=== PATIENT | female | born 1980 | race Caucasian/White ===

== ENCOUNTER 2019-12-24 14:19 | Outpatient (CLI) | payer OTHER, SELFPAY ==
--- NOTE | ~2019-12-24 | MM_ITS ---
EXAMINATION: MM screening rojas BI w edin HISTORY: Screening mammogram TECHNIQUE: Craniocaudal and mediolateral oblique 3-D tomosynthesis images were obtained and synthetic 2-D images were generated. CAD analysis was submitted and interpreted. COMPARISON: Comparison to multiple prior studies sequentially, with oldest reviewed study dated 08/2016. BREAST PARENCHYMAL COMPOSITION: There are scattered areas of fibroglandular density. FINDINGS: There is no evidence of suspicious mass, calcification, or architectural distortion to sugg est malignancy in either breast. There has been no suspicious interval change. IMPRESSION: 1. No mammographic evidence of malignancy. 2. Recommend routine screening mammography in one year. BI-RADS Category 1: Negative Reviewed, dictated and finalized at location A.
== END 2019-12-24 14:20 | disposition home or self-care (01) ==
LOC: ANHIMG 14:22
PROVIDERS: PCP Physician Assistant; Visit Provider Nurse Practitioner
DX: Z12.31 Encounter for screening mammogram for malignant neoplasm of breast (principal)
CPT/HCPCS: 77063; 77067

== ENCOUNTER → 2021-02-23 13:09 | Outpatient (CLI) | payer OTHER, SELFPAY ==
--- NOTE | ~2021-02-23 | MM_ITS ---
EXAMINATION: MM screening rojas BI w edin HISTORY: Screening TECHNIQUE: Craniocaudal and mediolateral oblique 3-D tomosynthesis images were obtained and synthetic 2-D images were generated. CAD analysis was submitted and interpreted. COMPARISON: Comparison to multiple prior studies sequentially, with oldest reviewed study dated 08/2016. BREAST PARENCHYMAL COMPOSITION: There are scattered areas of fibroglandular density. FINDINGS: There is no evidence of suspicious mass, calcification, or architectural distortion to sugg est malignancy in either breast. There has been no suspicious interval change. IMPRESSION: 1. No mammographic evidence of malignancy. 2. Recommend routine screening mammography in one year. BI-RADS Category 1: Negative Reviewed, dictated and finalized at location A.
== END ==
PROVIDERS: Visit Provider Nurse Practitioner
DX: Z12.31 Encounter for screening mammogram for malignant neoplasm of breast (principal)
CPT/HCPCS: 77063; 77067

== ENCOUNTER → 2021-10-15 13:54 | Outpatient (CLI) | payer OTHER, SELFPAY ==
--- NOTE | ~2021-10-15 | US_ITS ---
EXAMINATION: US transvaginal EXAM DATE: 10/15/2021 14:27 INDICATION: Abnormal uterine bleeding. History of tubal ligation, D and C for IUD removal TECHNIQUE: Pelvic transvaginal sonogram was performed. There are multiple grayscale and Doppler imag es available for interpretation. There is no prior study for comparison. FINDINGS: Uterus measures 9.5 x 5.1 x 6.1 cm, , with several fibroids identified, largest measuring 3.8 and 1.8 cm. endometrial stripe measures 8 mm, within normal limits, with several small echogenic foci along the endometrial/myometrial junction probably calcifications which could be dystrophic from prior procedure given history provided. There is no free pelvic fluid. Right adnexa: The ovary measures 3.3 x 1.6 x 2.3 cm and has the dominant follicle measuring 2.4 cm. O varian vascular flow confirmed. Left adnexa: The ovary measures 2.6 x 1.6 x 2.3 cm and is morphologically normal. Ovarian vascular fl ow confirmed. IMPRESSION: 1. Several fibroids. 2. Several small endometrial/myometrial junction echogenic foci, could be chronic calcifications, sc arring given the history provided. Endometrium normal in thickness. Reviewed, dictated and finalized at location B. IMPRESSION: 1. Several fibroids. 2. Several small endometrial/myometrial junction echogenic foci, could be lunchroom mother whitney calcifications, scarring given the history provided. Endometrium normal in thickness.
== END ==
PROVIDERS: Visit Provider Nurse Practitioner
DX: N93.8 Other specified abnormal uterine and vaginal bleeding (principal); D25.9 Leiomyoma of uterus, unspecified
CPT/HCPCS: 76830

== ENCOUNTER 2021-12-17 08:26 | Outpatient (CLI) | payer OTHER, SELFPAY ==
[2021-12-17 08:55] LABS: Anion Gap 4 mmol/L (8-16); Blood Urea Nitrogen 15 mg/dL (7-17); Calcium 8.9 mg/dL (8.4-10.2); Carbon Dioxide 27 mmol/L (22-30); Chloride 108 mmol/L (98-107); Estimated Glomerular Filt Rate > 60; Glucose 93 mg/dL (65-110); Potassium 4.3 mmol/L (3.4-5.0); Sodium 139 mmol/L (137-145)
== END 2021-12-17 08:27 | disposition home or self-care (01) ==
LOC: ANHSURGERY 08:30
PROVIDERS: Anesthesiology; PCP Physician Assistant; Visit Provider Obstetrics & Gynecology Gynecology
DX: Z01.818 Encounter for other preprocedural examination (principal)
CPT/HCPCS: 36415; 80048

== ENCOUNTER 2021-12-21 02:12 | Day surgery (SDC) | payer OTHER, SELFPAY ==
[2021-12-15 13:22] VITALS: BMI 33.3
--- NOTE | 2021-12-15 13:50 | PC.NURSE ---
Report to the Outpatient Waiting Room, entrance under the green pavilion located off [facility], at time _0830_ on date _12/21/21__. OR Time: 1030__. - You and your visitor will be asked a series of questions to screen for COVID 19 for your protection. - Only one visitor is allowed at this time. - The patient visitor is requested to leave or wait in car when not with patient. - A mask is required within the hospital. Patients may have clear liquids (water, carbonated beverages, clear teas, apple juice) until 3 hours prior to surgery with a maximum of 20 ounces. - No food from midnight until time of surgery - Take the following medications with a SIP of water the morning of surgery: __VENLEFAXINE Medications to discontinue per physician N/A Date to take last dose Please no make-up, nail guinean, hairspray, perfume, deodorant, or body powder the day of surgery. No jewelry (including any body piercings) or valuables the day of surgery, leave them at home. Please take a shower or bath the night before, or the morning of, surgery with an antibacterial soap. Wear comfortable, loose fitting clothing. - Jewelry must be removed prior to entering the operating room. Rings and piercings that are not removed may be cut off. - The hospital will not accept responsibility for valuables. - Please leave all valuables, including medications, at home the day of surgery. If you are going home after surgery, a licensed milk delivery driver must drive you home. - NO public transportation without another adult. - We recommend that an adult stay with you for 24 hours following discharge. - We also recommend that you do not drive, make important decision, drink alcoholic beverages, or take any drugs that were not prescribed by your health care provider for at least 24 hours after your discharge time. Follow any additional instructions given to you from your surgeon. If you or anyone in your household have experienced Covid symptoms in the past week, please notify your surgeon or the nurse liaison at the phone number below for possible testing. Telephone instructions given to __MALINDA and asked if any additional questions and then verbalized understanding. Patient advised to call surgeon office or pre surgery nurse liaison [phone] if any additional questions.
--- NOTE | 2021-12-21 08:09 | P.HP_ITS ---
History of Present Illness History of Present Illness Consent: Risks, benefits, and alternatives have been discussed and questions answered. Patient agrees to proceed with procedure. Chief complaint: menorrhagia, fibroids Narrative: Anastacia Story is a 41 year old female with a change in her cycle March of 2021. She reports having 2 cycles per month approximately every 19 to 23 days. Starting in September changed to also being heavy and she is changing a super tampon every 1-1/2 hours with clots. Pelvic ultrasound revealed a normal size uterus at no 0.5x5.1x6.1 however there are several small fibroids noted. The ultrasound does not give location. It was recommended to proceed with D&C hysteroscopy in the operating room to evaluate the endometrium and potentially perform hysteroscopic resection of fibroid if submucosal. Risks of infection, bleeding, perforation, and fluid imbalance were reviewed. Possible pathology was also discussed. Patient voices understanding and agrees to proceed. REPLACED BY [facility] Past Medical History Medical History (Updated 12/21/21 @ 08:15 by Siobhan Travis MD) Status post hysteroscopy Removal IUD Ulnar nerve compression Bilateral surgery left 2017 right 2019 Surgical History Surgical History (Updated 12/21/21 @ 08:14 by Siobhan Travis MD) History of bilateral tubal ligation History of loop electrical excision procedure (LEEP) X2 Status post laparoscopic cholecystectomy Social History Social History Smoking packs per day: 0.5 Smoking cigarettes per day: 10.0 Years smoked: 25 Smoking pack-years: 12.50 Smoking status: Current every day smoker Tobacco type: cigarettes Alcohol intake: never Substance use: never Substance use type: does not use Living arrangements: alone Spiritual care concerns: No Meds Home Medications and Allergies Home Medications Medication Instructions Recorded Confirmed Type ergocalciferol (vitamin D2) 1,250 1 cap PO WEEKLY 12/15/21 12/15/21 History mcg (50,000 unit) capsule metformin 500 mg tablet,extended 500 tablet PO BIDWMEAL 12/15/21 12/15/21 History release 24 hr venlafaxine 75 mg capsule,extended 75 cap PO DAILY 12/15/21 12/15/21 History release 24 hr Allergies Allergy/AdvReac Type Severity Reaction Status Date / Time Penicillins Allergy Unknown Verified 07/22/17 21:20 Exam Const: General: healthy appearing and alert Orientation/consciousness: patient oriented x3 GI: GI Palp: Yes Soft to palpation, No Tenderness to palpation present (GI) and No Palpable mass present : External Female Exam: normal external appearance Speculum Exam - Vagina: normal appearance of the vagina and normal vaginal discharge Speculum Exam - Cervix: normal appearance of the cervix Bimanual exam- vagina & uterus: uterine size normal and consistency normal Bimanual Exam- Adnexa, other: normal adnexae and No adnexal tenderness Neuro: General: patient oriented x3 Assessment and Plan Assessment and plan (1) Menorrhagia: Code(s): N92.0 - Excessive and frequent menstruation with regular cycle Status: Acute Assessment and Plan: Plan is to proceed with D&C hysteroscopy
--- NOTE | 2021-12-21 08:09 | WPDHPUPDATE1 ---
History and Physical Update Update Date/Time: 12/21/21 08:09 History and Physical has been reviewed, including an updated exam of the patient. There are NO changes in the patient's condition. Risks, benefits, and alternatives have been discussed and questions answered. Patient agrees to proceed with procedure.
[2021-12-21] MEDS: ACETAMINOPHEN 500 MG TABLET 1000 MG PO (09:15)
--- NOTE | 2021-12-21 09:37 | WPDANESEPPF ---
Anes - Initial Pre Proc Eval Procedure: Operation Date: 12/21/21 10:30 Proposed Procedures p Hysteroscopy Dilation and Curettage with Myomectomy - Siobhan Travis MD Date/Time: 12/21/21 09:37 Surgeon: Siobhan Travis MD Pre Op Diagnosis: menorrhagia, fibroids Patient Data Age: 41 Gender: F Height: 1.65 m Weight: 91 kg Allergies Allergy/AdvReac Type Severity Reaction Status Date / Time Penicillins Allergy Unknown Verified 07/22/17 21:20 Home Medications Medication Instructions Recorded Confirmed Type ergocalciferol (vitamin D2) 1,250 1 cap PO WEEKLY 12/15/21 12/15/21 History mcg (50,000 unit) capsule metformin 500 mg tablet,extended 500 tablet PO BIDWMEAL 12/15/21 12/15/21 History release 24 hr venlafaxine 75 mg capsule,extended 75 cap PO DAILY 12/15/21 12/15/21 History release 24 hr Patient hx anesthesia problems: none Family hx anesthesia problems: none Results Review: All pre-operative results and documents have been reviewed as part of the pre-operative evaluation. [facility] Past Medical History Medical History Diabetes Surgical History Surgical History History of bilateral tubal ligation History of loop electrical excision procedure (LEEP) X2 Status post laparoscopic cholecystectomy Social History Social History Smoking packs per day: 0.5 Smoking cigarettes per day: 10.0 Years smoked: 25 Smoking pack-years: 12.50 Smoking status: Current every day smoker Tobacco type: cigarettes Alcohol intake: never Substance use: never Substance use type: does not use Living arrangements: alone Spiritual care concerns: No Anes - Eval Final PreProcedure Day of Procedure 12/21/21 09:37 Patient weight: obese Heart: regular rate and rhythm Lungs: decreased breath sounds Airway: Mallampati scale class II Neurological: alert and oriented Last oral intake: >/= 8 hours ASA classification: III Emergent: no Anesthetic plan: proceed Anesthesia type and monitoring: general GIVS and standard monitoring Results Review: All pre-operative results and documents have been reviewed as part of the pre-operative evaluation. Informed Consent: The patient's anesthetic plan and its attendant risks and benefits were discussed with the patient/family/POA. Questions were solicited and answers provided to the satisfaction of the patient/family/POA.
[2021-12-21 09:50] LABS: Glucose Point of Care 104 mg/dl (65-105)
[2021-12-21 09:54] VITALS: BP 123/61; PULSE 79; RESP 16; TEMP 36.3; O2SAT 99
[2021-12-21] MEDS: LACTATED RINGERS 1,000 ML 30 ML IV CONT (09:55)
[2021-12-21] MEDS: LIDOCAINE HCL 1% PF 30 ML VIAL INFILTRATE (10:28)
--- NOTE | 2021-12-21 10:35 | P.OP_ITS ---
Procedure Note - Detailed Date of Procedure 12/21/21 Pre-op Diagnosis menorrhagia, fibroids Post-op Diagnosis Same Procedure Performed D&C hysteroscopy Surgeon Siobhan Travis MD Anesthesia MAC and Local Findings 1/2cm polyp prolapsed at the cervix. Uterus sounds to 7.5cm. There are 2 areas of shaggy endometrium without discrete lesions. Remainder of the endometrium appears grossly normal. Description of Procedure The patient is taken to the operating room and placed under anesthesia in the dorsal lithotomy position. She was prepped and draped in the usual sterile fashion. [place] speculum was placed in the vagina and the cervix grasped on the anterior lip with a tenaculum. The cervix is injected in each quadrant with 1% lidocaine. The polyp at the cervix is grasped with polyp forceps and removed. The uterus is sounded to 7.5cm and the cervix is serially dilated to an 8 Hegar. The diagnostic hysteroscope was placed with the stated findings. The small MyoSure device is opened and placed and the 2 shaggy areas are removed with the MyoSure device. The hysteroscope was removed and the medium sharp curette is used to curette the endometrium until a good uterine cry was noted in all areas. All instruments are then removed. Sponge, needle, and instrument counts are correct per the OR staff. Patient is awakened from the anesthesia and taken to recovery in stable condition. Estimated Blood Loss 5 Drains No Packing No Pathology Yes (Endometrial shavings and curettings with endocervical polyp) Complications No immediate complications Condition Stable Disposition PACU
[2021-12-21 10:38] VITALS: BP 112/58; PULSE 76; RESP 16; O2SAT 97
[2021-12-21 11:05] VITALS: BP 99/56; PULSE 66; RESP 14; O2SAT 97
[2021-12-21 11:35] VITALS: BP 102/67; PULSE 62; RESP 16
== END 2021-12-21 11:35 | disposition home or self-care (01) ==
PROVIDERS: PCP Physician Assistant; Visit Provider Obstetrics & Gynecology Gynecology
PROC: 0U5B8ZZ Destruction of Endometrium, Via Natural or Artificial Opening Endoscopic (ICD-10-PCS; CPT 58563; principal; 2021-12-21 10:30)
DX: N92.0 Excessive and frequent menstruation with regular cycle (principal); N84.1 Polyp of cervix uteri; E11.9 Type 2 diabetes mellitus without complications; Z79.84 Long term (current) use of oral hypoglycemic drugs; F17.210 Nicotine dependence, cigarettes, uncomplicated; E66.9 Obesity, unspecified; Z68.33 Body mass index [BMI] 33.0-33.9, adult
CPT/HCPCS: 58558; 36415; 80048; 82948; 88305; A9270; J1885; J2250; J2704; J3010; J7120

== ENCOUNTER 2022-08-06 07:14 | Outpatient (CLI) | payer OTHER, SELFPAY ==
--- NOTE | ~2022-08-06 | MM_ITS ---
EXAMINATION: MM screening rojas BI w edin HISTORY: Screening mammogram TECHNIQUE: Craniocaudal and mediolateral oblique 3-D tomosynthesis images were obtained and synthetic 2-D images were generated. CAD analysis was submitted and interpreted. COMPARISON: 02/23/2021, 12/24/2019, bilateral screening mammogram examinations BREAST PARENCHYMAL COMPOSITION: There are scattered areas of fibroglandular density. FINDINGS: There is no evidence of suspicious mass, calcification, or architectural distortion to sugg est malignancy in either breast. There has been no suspicious interval change. IMPRESSION: 1. No mammographic evidence of malignancy. 2. Recommend routine screening mammography in one year. BI-RADS Category 1: Negative Reviewed, dictated and finalized at location B. INSPECTOR
== END 2022-08-06 07:15 | disposition home or self-care (01) ==
LOC: ANHIMG 07:17
PROVIDERS: PCP Physician Assistant; Visit Provider Nurse Practitioner
DX: Z12.31 Encounter for screening mammogram for malignant neoplasm of breast (principal)
CPT/HCPCS: 77063; 77067

== ENCOUNTER 2022-11-30 14:21 | Outpatient (CLI) | payer OTHER, SELFPAY ==
--- NOTE | ~2022-11-30 | US_ITS ---
EXAMINATION: US axilla BI INDICATION: Bilateral axillary pain TECHNIQUE: Bilateral axillary ultrasound is performed. COMPARISON: 11/22/2017 FINDINGS: No suspicious cystic or solid mass is identified. There is a normal-appearing left axillary lymph node in the area of the patient's left axillary pain. IMPRESSION: 1. No suspicious sonographic correlate is identified for the patient's reported axillary pain. Furthe r evaluation at this time should be based on clinical assessment. Continued follow-up physical examin ation is recommended. BI-RADS Category 1: Negative Reviewed, dictated and finalized at location A. IMPRESSION: 1. No suspicious sonographic correlate is identified for the patient's reported axillary pain. Further evaluation at this time should be based on clinical ass essment. Continued follow-up physical examination is recommended. BI-RADS Category 1: Negative
--- NOTE | ~2022-11-30 | US_ITS ---
EXAMINATION: US soft tissue LE LT DATE: 11/30/2022 14:43 INDICATION: Chronic palpable lump to the left mid to upper thigh. TECHNIQUE: Multiple grayscale and Doppler ultrasound images of the region of concern at the left mid to upper thigh were obtained. COMPARISON: None FINDINGS: 4.8 x 1.5 x 3.3 cm ovoid mass in the subcutaneous tissues at the region of concern which is isoechoic and with identical echotexture and internal septated architecture as the surrounding subcutaneous fa t most consistent with a lipoma. No abnormal increased vascular flow on color Doppler. No other abnor mal masses or fluid collections identified. IMPRESSION: 1. 4.8 x 1.5 x 3.3 cm subcutaneous mass at the region of concern with appearance most consistent with and statistically most likely to represent a lipoma. Reviewed, dictated and finalized at location A. IMPRESSION: 1. 4.8 x 1.5 x 3.3 cm subcutaneous mass at the region of concern with appearanc e most consistent with and statistically most likely to represent a lipoma.
== END 2022-11-30 14:22 ==
PROVIDERS: PCP Physician Assistant; Visit Provider Physician Assistant
DX: R22.42 Localized swelling, mass and lump, left lower limb (principal); M79.629 Pain in unspecified upper arm
CPT/HCPCS: 76882

== ENCOUNTER 2024-06-07 14:16 | Outpatient (CLI) | payer OTHER, SELFPAY ==
--- NOTE | ~2024-06-07 | MM_ITS ---
EXAMINATION: MM screening [facility] BI w edin HISTORY: Screening mammogram TECHNIQUE: Craniocaudal and mediolateral oblique 3-D tomosynthesis images were obtained and synthetic 2-D images were generated. CAD analysis was submitted and interpreted. COMPARISON: 08/06/2022, 02/23/2021, 12/24/2019 BREAST PARENCHYMAL COMPOSITION:Not Dense. There are scattered areas of fibroglandular density. FINDINGS: No suspicious mass, calcification, or architectural distortion are identified in either ilan ast to suggest malignancy. There has been no suspicious interval change. IMPRESSION: No mammographic evidence of malignancy. Recommend routine screening mammography in one year. BI-RADS Category 1: Negative Reviewed, dictated and finalized at location . ICAL APPLICATIONS MANAGER
== END 2024-06-07 14:17 | disposition home or self-care (01) ==
LOC: ANHIMG 14:19
PROVIDERS: PCP Physician Assistant; Visit Provider Nurse Practitioner
DX: Z12.31 Encounter for screening mammogram for malignant neoplasm of breast (principal)
CPT/HCPCS: 77063; 77067

== ENCOUNTER 2024-12-26 08:28 | Outpatient (CLI) | payer OTHER, SELFPAY ==
--- NOTE | ~2024-12-26 | US_ITS ---
Pelvic ultrasound. Clinical History: Right lower quadrant pain Technique: Realtime transabdominal and transvaginal scanning of the pelvis was performed. Color flow Doppler and Doppler spectral analysis were performed. Findings: The uterus is anteverted, and measures 7.6 x 3.9 x 5.0 cm. The endometrial stripe has a th ickness of 4 mm. 3 mm echogenic focus noted adjacent to or within the endometrial stripe. Probable 1 cm lower uterine segment fibroid. The right ovary measures 2.8 x 2.1 x 3.7 cm. No significant right ovarian or adnexal mass is seen. The left ovary measures 2.6 x 1.3 x 1.9 cm. No significant left ovarian or adnexal mass is seen. There is no evidence of free fluid in the cul de sac. Impression: Probable 1 cm lower uterine segment fibroid versus possibly complex nabothian cyst. Reviewed, dictated and finalized at [facility]. Impression: Probable 1 cm lower uterine segment fibroid versus possibly complex nabothian c yst.
== END 2024-12-26 08:29 | disposition home or self-care (01) ==
LOC: MICIMG 08:30
PROVIDERS: PCP Physician Assistant; Visit Provider Obstetrics & Gynecology Gynecology
DX: R10.31 Right lower quadrant pain (principal); R93.89 Abnormal findings on diagnostic imaging of other specified body structures
CPT/HCPCS: 76830; 76856